=== PATIENT | male | born 1960 | race Native Hawaiian/Other Pacific Islander ===

== ENCOUNTER 2017-02-07 04:36 | Outpatient (CLI) | payer OTHER | END 2017-02-07 04:50 | disposition short-term general hospital (02) | LOC: AMB 04:36 | DX: R07.89 Other chest pain (principal); R20.0 Anesthesia of skin | CPT/HCPCS: A0425; A0427 ==

== ENCOUNTER 2017-02-07 04:55 | Emergency (ER) | payer OTHER ==
[~2017-02-07] VITALS: Ht 172.7 cm; Wt 72.6 kg
[2017-02-07 05:26] VITALS: TEMP 97.5
[2017-02-07 05:32] LABS: PLATELET COUNT 277 K/uL (142-355)
[2017-02-07 05:42] LABS: POTASSIUM 3.1 mmol/L (3.6-5.2); SODIUM 136 mmol/L (136-145)
[2017-02-07 05:59] LABS: PARTIAL THROMBOPLASTIN TIME 21.7 SECONDS (24.5-33.6)
[2017-02-07 08:36] VITALS: BP 120/69
== END 2017-02-07 08:36 | disposition short-term general hospital (02) ==
LOC: ED 04:55
PROC: 0T9B70Z Drainage of Bladder with Drainage Device, Via Natural or Artificial Opening (ICD-10-PCS; principal; 2017-02-07)
DX: I21.11 ST elevation (STEMI) myocardial infarction involving right coronary artery (principal); R00.1 Bradycardia, unspecified
CPT/HCPCS: 36415; 36600; 51702; 80053; 80307; 81000; 82550; 82805; 83880; 84484; 85027; 85379; 85610; 85730; 93005; 96360; 96375; 99285; G0479; J1644; J2270; J2310; J2405

== ENCOUNTER 2017-02-07 08:41 | Outpatient (CLI) | payer OTHER | END 2017-02-07 09:11 | disposition short-term general hospital (02) | LOC: AMB 08:41 | DX: I21.11 ST elevation (STEMI) myocardial infarction involving right coronary artery (principal); R00.1 Bradycardia, unspecified | CPT/HCPCS: A0425; A0427 ==